=== PATIENT | male | born 1940 | race Caucasian/White ===

== ENCOUNTER 2017-02-26 15:51 | Emergency (ER) | payer OTHER, MEDICAID ==
--- NOTE | 2017-02-26 16:06 | EDPHY ---
H & P HPI/ROS: CHIEF COMPLAINT: Chest pain and light headed HISTORY OF PRESENT ILLNESS: The patient is a 76 y/o male presenting with chest strain and feeling light headed. The first episode happened this morning after he had an episode of blood -streaked stool. His symptoms went away but then returned this afternoon. He was sitting down when these symptoms began. He is still having these symptoms but is also feeling tense and having weakness in his arms. This past December, 2 months ago, he quit drinking alcohol. He admits to having bilateral pedal edema for "years". Denies taking medications and has not seen a PCP in years. Denies shortness of breath, feeling faint, nausea, diarrhea, weakness or tingling in lower extremities, abdominal pain, cough or fever. REVIEW OF SYSTEMS: A ten point review of systems was performed and is negative with the exception of the items mentioned in the HPI. Past medical history: Denies Past surgical history: Denies Family history: Denies Social history: Single Lives in [place] History of alcohol abuse, currently sober No alcohol, tobacco, or illicit drugs General Appearance: Alert. Vital signs reviewed. BP 155/78. Eyes: Pupils equal and round, no conjunctival injection, no discharge. Anicteric. ENT, Mouth: Mucous membranes are moist, no oropharyngeal erythema or edema. Neck: No lymphadenopathy, supple. Respiratory: Breath sounds distant but lungs are clear to auscultation; no wheezes, rales, or rhonchi. Cardiovascular: Regular rate and rhythm; no murmur, rub, or gallop. Gastrointestinal: Abdomen is soft and nontender, no masses or organomegaly, bowel sounds normal. Rectal: Non-thrombosed external hemorrhoids, brown stool on glove. Skin: Scattered bilateral arm bruising. Warm and dry, no rashes on exposed skin , normal color. Back: Nontender to palpation over the thoracolumbar spine. No CVAT. Extremities: 3+ bilateral pitting pedal edema to the knees. Chronic venous stasis change, blood blister on 2nd right toe Neurological: Alert and oriented. Moving all four extremities easily and equally. Psychiatric: Normal affect. Constitutional: Initial Vital Signs Heart Rate 72 02/26/17 16:09 Respiratory Rate 18 02/26/17 16:09 Blood Pressure 155/78 H 02/26/17 16:09 O2 Sat (%) 92 02/26/17 16:09 O2 Delivery Mode Room Air Allergies/Adverse Reactions: No Known Allergies Allergy (Verified 02/26/17 16:12) Home Medications: Medication Instructions Recorded No Medications [NO HOME 1 ea [facility] [place] 10/19/10 MEDICATIONS] Melatonin 02/26/17 Medical Decision Making - Diagnostics Imaging: Discussed imaging studies w/ call manager Radiologist, I viewed and interpreted images myself ED Course/Re-evaluation: The patient is a 76 y/o male presenting with mild chest pain that he has difficulty explaining and localizing and also lightheadedness since this morning. No syncope. He reports an episode of blood streaked stool today. On exam he has distant breath sounds, 3+ bilateral pitting pedal edema, and bilateral chronic venous stasis changes. He has not seen a doctor in years and is not currently on any medications. 1626: The 12 lead EKG was interpreted by myself. See hard copy and/or "tracemaster" electronic copy for interpretation. 1630: Patient's labs are unremarkable. 1718: Reassessed patient and performed a rectal exam. He has external hemorrhoids that are non-thrombosed. He is felling better than earlier but is still "tense". 1745: Patient's chest x-ray shows underlying emphysema and cardiac enlargement. There are no acute findings. Normal troponin. No signs of infection on CXR. I do not suspect pneumonia, based on symptoms and evaluation. I do not think he has a PE. Stool is negative for blood and he is hemodynamically stable--I do not suspect GI bleed. His complaints remain vague. I am concerned about his LE edema. He has cardiomegaly on CXR. CHF, likely chronic, is a possibility. 1906: Reassessed patient, his O2sat is 89%. With a few deep breaths he is able to increase it to 94 and it remained over 90% thereafter. I have discussed imaging findings. He notes he does not exercise a lot and sits for the majority of the day. His chest pain seems to have resolved. He does believe he can take care of himself at home. I have advised him to follow up with a PCP. He did make an appointment with [facility] for Wednesday, I have advised him to follow up at [facility] without fail. Return precautions provided; patient is comfortable with this plan. - Data Points Laboratory Results: Laboratory Results 02/26/17 15:55 02/26/17 15:55 Departure - Departure Disposition: Home, Routine, Self-Care Clinical Impression: Lower extremity edema Condition: Good Instructions: Leg Edema (ED), Edema (ED) Additional Instructions: Keep your appointment at [facility] on Wednesday without fail. Return to the Emergency Department if you experience chest pain, shortness of breath, fever, abdominal pain, weakness, numbness or other worsening of your symptoms. Referrals: [facility],. [Clinic] - As per Instructions Report Scribed for: Paola Seaman Report Scribed by: Denise Neal Date of Report: 02/26/17 Time of Report: 16:10 Physician Review and Approval Statement: 02/26/17 16:05 Portions of this note were transcribed by the director of graduate medical education. I, Dr. Paola Seaman, personally performed the history, physical exam, and medical decision- making; and confirmed the accuracy of the information in the transcribed note.
[2017-02-26 16:19] LABS: % IMMATURE GRANULYOCYTES 0.3 % (0.0-1.1); ABSOLUTE IMMATURE GRANULOCYTES 0.02 10^3/uL (0.00-0.10); ADD DIFF? NO; ADD MORPH? NO; ADD SCAN? NO; ATYPICAL LYMPHOCYTE FLAG 0 (0-99); FRAGMENT RBC FLAG 0 (0-99); HEMATOCRIT 44.3 % (40.0-51.0); HEMOGLOBIN 15.4 g/dL (13.7-17.5); LEFT SHIFT FLG 0 (0-99); LIPEMIA HEMOLYSIS FLAG 90 (0-99); MEAN CELL HEMOGLOBIN 32.4 pg (27.9-34.1); MEAN CELL HEMOGLOBIN CONCENTR. 34.8 g/dL (32.4-36.7); MEAN CELL VOLUME 93.3 fL (81.5-99.8); MEAN PLATELET VOLUME 9.4 fL (8.7-11.7); PLATELET CLUMPS FLAG 20 (0-99); PLATELET COUNT 269 10^3/uL (150-400); RED BLOOD CELL COUNT 4.75 10^6/uL (4.40-6.38); RED CELL DISTRIBUTION WIDTH 12.8 % (11.5-15.2)
[2017-02-26 16:27] LABS: ANION GAP 14 mEq/L (8-16); CALCIUM 9.6 mg/dL (8.5-10.4); CARBON DIOXIDE 21 mEq/l (22-31); CHLORIDE 102 mEq/L (97-110); CREATININE 0.6 mg/dL (0.7-1.3); GLOMERULAR FILTRATION RATE > 60; GLUCOSE 107 mg/dL (70-100); POTASSIUM 3.8 mEq/L (3.5-5.2); SODIUM 137 mEq/L (134-144)
--- NOTE | 2017-02-26 16:27 | CPEKG ---
Heart Rate: 72 RR Interval: 833 QRSD Interval: 116 QT Interval: 444 QTC Interval: 486 QRS Delta: -2 T Wave Delta: 33 EKG Severity - ABNORMAL ECG - EKG Impression: ACCELERATED JUNCTIONAL RHYTHM EKG Impression: INCOMPLETE RIGHT BUNDLE BRANCH BLOCK Electronically Signed By: Annamarie Barakat 26-Feb-2017 20:04:28
[2017-02-26 16:28] LABS: INR 0.98 (0.83-1.16); PROTIME(PATIENT) 12.9 SEC (12.0-15.0)
[2017-02-26 16:45] LABS: ALANINE AMINOTRANSFERASE 19 IU/L (21-72); ALBUMIN 4.1 g/dL (3.5-5.0); ALKALINE PHOSPHATASE 116 IU/L (38-126); ASPARTATE AMINOTRANSFERASE 17 IU/L (17-59); BILIRUBIN,TOTAL 0.7 mg/dL (0.1-1.4); BILIRUBIN-CONJUGATED 0.2 mg/dL (0.0-0.5); BILIRUBIN-UNCONJUGATED 0.5 mg/dL (0.0-1.1); TOTAL PROTEIN 6.6 g/dL (6.3-8.2)
[2017-02-26 16:57] LABS: TROPONIN I < 0.012 ng/mL (0.000-0.034)
[2017-02-26 17:50] LABS: COLOR YELLOW; LEUKOCYTE ESTERASE,URINE NEGATIVE (NEGATIVE); NITRITE,URINE NEGATIVE (NEGATIVE)
[2017-02-26 18:55] VITALS: RESP 16; TEMP 98.2
[2017-02-26 20:10] VITALS: BP 154/92; PULSE 79; O2SAT 91
== END 2017-02-26 20:10 | disposition home or self-care (01) ==
LOC: EDUNIT#
DX: R60.0 Localized edema (principal)

== ENCOUNTER → 2017-03-24 | Outpatient (CLI) | payer OTHER, MEDICAID | LOC: BHFA 10:45 | PROVIDERS: ATTEND Internal Medicine Cardiovascular Disease | DX: R60.9 Edema, unspecified (principal) ==